=== PATIENT | female | born 1975 | race Two or more races ===

== ENCOUNTER 2017-01-14 10:42 | Emergency (ER) | payer OTHER ==
[~2017-01-14] VITALS: Ht 157.5 cm; Wt 63.0 kg
[2017-01-14] MEDS ORDERED: HYDROcodone/APAP 5/325MG 1 TAB TABLET PO ONE (11:15)
--- NOTE | 2017-01-14 11:17 | PHYS DOC ---
Past Medical History Past Medical History: No Pertinent History Past Surgical History: No Surgical History Alcohol Use: None Drug Use: None Adult General Chief Complaint Chief Complaint: FINGER INJURY HPI HPI Patient is a 41 year old female presents to the emergency department with coworker who is interpreting as patient speaks Tajik only. Patient was at work when she got her right fifth finger caught in a gel press. Patient does have a laceration that does go through the fingernail. Patient had been seen at an urgent care and was told that she had a fracture, and was sent here to the emergency department. Patient has not had any pain medication. She is unsure when her last tetanus immunization occurred. Bleeding is currently controlled. Patient does have good sensation to the tip of the finger. Review of Systems Review of Systems Constitutional: Denies fever or chills [] Eyes: Denies change in visual acuity, redness, or eye pain [] HENT: Denies nasal congestion or sore throat [] Respiratory: Denies cough or shortness of breath [] Cardiovascular: No additional information not addressed in HPI [] GI: Denies abdominal pain, nausea, vomiting, bloody stools or diarrhea [] : Denies dysuria or hematuria [] Musculoskeletal: Denies back pain or joint pain. Pain to the right fifth finger Integument: Denies rash or skin lesions. Laceration to the right fifth finger tip. Neurologic: Denies headache, focal weakness or sensory changes [] Endocrine: Denies polyuria or polydipsia [] Current Medications Current Medications Current Medications Medications (Trade) Dose Ordered Sig/Tara Start Time Stop Time Status Last Admin Dose Admin Acetaminophen/ Hydrocodone Bitart (Lortab 5/325) 2 tab 1X ONCE 01/14/17 11:15 01/14/17 11:17 DC 01/14/17 11:21 2 TAB Diphtheria/ Tetanus/Acell Pertussis (Boostrix) 0.5 ml ONCE ONCE 01/14/17 12:15 01/14/17 12:16 DC 01/14/17 11:48 0.5 ML Lidocaine/Sodium Bicarbonate (Buffered Lidocaine 1%) 20 ml 1X ONCE 01/14/17 12:15 01/14/17 12:16 DC 01/14/17 11:47 20 ML Allergies Allergies Allergies Coded Allergies Type Severity Reaction Last Updated Verified No Known Drug Allergies 01/14/17 No Physical Exam Physical Exam Constitutional: Well developed, well nourished, no acute distress, non-toxic appearance. [] HENT: Normocephalic, atraumatic, bilateral external ears normal, oropharynx moist, no oral exudates, nose normal. [] Eyes: PERRLA, EOMI, conjunctiva normal, no discharge. [] Neck: Normal range of motion, no tenderness, supple, no stridor. [] Cardiovascular:Heart rate regular rhythm Lungs & Thorax: No respiratory distress Skin: Warm, dry, no erythema, no rash. Patient with a 1 cm laceration on the tip of the right fifth finger that does go through the nail. Bleeding is currently controlled. Back: No tenderness Extremities: No tenderness, no cyanosis, no clubbing, ROM intact, no edema. Right fifth fingertip pain and discomfort. Neurologic: Alert and oriented X 3, normal motor function, normal sensory function, no focal deficits noted. [] Psychologic: Affect normal, judgement normal, mood normal. [] Current Patient Data Vital Signs Vital Signs Date Time Temp Pulse Resp B/P (MAP) Pulse Ox O2 Delivery O2 Flow Rate FiO2 01/14/17 12:51 86 16 106/56 (73) 100 Room Air 01/14/17 10:45 97.7 97.7 EKG EKG [] Radiology/Procedures Radiology/Procedures [][facility] [address] [place] [address] IMAGING REPORT Signed PATIENT: RACHEL MCINTYRE ACCOUNT: [id number] : 1975 LOCATION: ER AGE: 41 SEX: F EXAM STATUS: PRE ER ORD. PHYSICIAN: NEL SIMS APRN REASON: right fifth finger pain, crush injury PROCEDURE: FINGER(S) RIGHT Exam: Right fingers radiograph 01/14/2017 Indication: Crush injury Comparison: None available Technique: 3 views of the fifth digit are provided. Findings: There is comminuted fracture involving the tuft of the distal phalanx of the fifth digit. No joint space narrowing. There is associated soft tissue swelling. No osseous erosion or soft tissue gas. Bone mineralization is within normal limits. Impression: Comminuted fracture involving the tuft of the distal phalanx of the fifth digit. There is minimal displacement of fracture fragments. DICTATED and SIGNED BY: JERED DELGADILLO MD DATE: 01/14/17 1118 CC: NLE SIMS APRN ~ Course & Med Decision Making Course & Med Decision Making Pertinent Labs and Imaging studies reviewed. (See chart for details) Patient was noted to have a tuft fracture on the right fifth finger. Patient also has a laceration noted at the site. This is considered an open fracture. Patient's finger will be provided a digital block in which we will soak the finger and irrigated with Betadine and saline. A call his been placed to for a hand specialist. Patient has been provided with 2 hydrocodone's here in the emergency department for pain control. Spoke with Dr Orellana at [facility] in regards to followup recommendation, and treatment regimen. He recommends that the patient followup with Dr Garcia [phone] in 1 week Provided this information to the patient and coworker who stated their work has a hand specialist that they can followup with. 1210 Right fifth finger with digital block of 1% lidocaine buffered injected apprx 5 ml. Finger soaking in betadine and saline. Patient has been provided with discharge instructions, treatment regimens and follow-up recommendations with the servicer, coworker at the bedside. Patient will be discharged home in stable condition signs symptoms to return back to emergency department as been provided. Recommended that they follow-up in 1 week with either their primary orthopedic hand doctor through work comp or with the physician with . [] Dragon Disclaimer Dragon Disclaimer This electronic medical record was generated, in whole or in part, using a voice recognition dictation system. Departure Departure Impression: Primary Impression: Open fracture of tuft of distal phalanx of finger Disposition: HOME, SELF-CARE Condition: STABLE Patient Instructions: Finger Fracture, [id number] Additional Instructions: Activity as tolerated. Medications as prescribed. Ice packs on 20 minutes off 20 minutes several times a day. Elevation as much as possible. Hydrocodone for severe pain and discomfort. This medication will cause drowsiness do not take any be alert and oriented. Take the antibiotics as prescribed. Keep the area clean and dry and clean the site twice a day with soap and water and apply antibiotic ointment. Follow-up with your work comp hand specialist within the next week. We have also provided she will with a follow-up number for [facility] hand specialist. Dr Garcia at [phone] Return to emergency department as needed for signs and symptoms that become worse. Scripts Hydrocodone/Apap 5-325 (NORCO 5-325 TABLET) 1 Each Tablet 1 TAB PO PRN Q6HRS Y for PAIN, #10 TAB 0 Refills Prov: NEL SIMS APRN 01/14/17 Cephalexin (CEPHALEXIN) 500 Mg Tablet 1 TAB PO BID, #20 TAB Prov: NEL SIMS APRN 01/14/17 Laceration/Wound Repair Laceration/Wound Repair : Wound Location: upper extremity Wound's Depth, Shape: nail-avulsed Wound Length (cm): 1 Wound Explored: clean Irrigated w/ Saline (ccs): 200 Betadine Prep?: Yes Anesthesia: 1% Lidocaine Volume Anesthetic (ccs): 5 Wound Repaired With: sutures Suture Size/Type: 3:0, nylon Number of Sutures: 3 Progress 1% buffered lidocaine was used to inject for digital block to the right fifth finger with approximately 5 mL. Site was soaked in Betadine and saline for 20 minutes. Site was then irrigated with 200 mL of Betadine and saline. Site was sutured with 3-0 nylon with 3 interrupted sutures placed. Patient with suture noted to the nail. Patient tolerated the procedure well. NEL SIMS APRN Jan 14, 2017 11:17
--- NOTE | 2017-01-14 11:23 | RAD ---
Exam: Right fingers radiograph 01/14/2017 Indication: Crush injury Comparison: None available Technique: 3 views of the fifth digit are provided. Findings: There is comminuted fracture involving the tuft of the distal phalanx of the fifth digit. No joint space narrowing. There is associated soft tissue swelling. No osseous erosion or soft tissue gas. Bone mineralization is within normal limits. Impression: Comminuted fracture involving the tuft of the distal phalanx of the fifth digit. There is minimal displacement of fracture fragments.
[2017-01-14] MEDS ORDERED: DIPHTH,PERTUSS(ACELL),TET TOX 0.5 ML DISP.SYRIN. VAX IM ONE (12:15)
[2017-01-14] MEDS ORDERED: LIDOCAINE 1% / SOD BICARB 8.4% 20 ML VIAL. IJ ONE (12:15)
[2017-01-14] MEDS ORDERED: CEPH500T PO (12:24)
[2017-01-14] MEDS ORDERED: HYDR-971 PO (12:24)
[2017-01-14 12:51] VITALS: BP 106/56
== END 2017-01-14 12:50 | disposition home or self-care (01) ==
LOC: ER 10:42
DX: S62.639A Displaced fracture of distal phalanx of unspecified finger, initial encounter for closed fracture (principal); W23.0XXA Caught, crushed, jammed, or pinched between moving objects, initial encounter; Y93.89 Activity, other specified; Y99.8 Other external cause status; Y92.89 Other specified places as the place of occurrence of the external cause
CPT/HCPCS: 29130; 73140; 90471; 90715; 99284-25